=== PATIENT | male | born 1940 | race Caucasian/White ===

== ENCOUNTER 2022-06-10 15:21 | Inpatient (IN) ==
[2022-06-10 18:49] LABS: BASOPHILS # (AUTO) 0.1 X10^3/uL (0.0-0.1); BASOPHILS % (AUTO) 0.9 % (0.2-1.0); EOSINOPHILS # (AUTO) 0.5 x10^3/uL (0.0-0.2); EOSINOPHILS % (AUTO) 3.5 % (0.9-2.9); HEMATOCRIT 38.1 % (42.0-54.0); HEMOGLOBIN 12.9 g/dL (13.5-18.0); LYMPHOCYTES # (AUTO) 2.8 X10^3/uL (1.3-2.9); LYMPHOCYTES % (AUTO) 19.8 % (21.0-51.0); MEAN CORPUSCULAR HEMOGLOBIN 31.8 pg (27.0-34.0); MEAN CORPUSCULAR HGB CONC 33.9 g/dL (33.0-35.0); MEAN CORPUSCULAR VOLUME 93.6 fL (80.0-100.0); MEAN PLATELET VOLUME 8.6 fL (7.4-11.0); MONOCYTES % (AUTO) 7.2 % (0.0-13.0); NEUTROPHILS # (AUTO) 9.6 x10^3/uL (2.2-4.8); NEUTROPHILS % (AUTO) 68.6 % (42.0-75.0); PLATELET COUNT 339 X10^3/uL (150.0-450.0); RED BLOOD COUNT 4.07 X10^6/uL (4.7-6.0); RED CELL DISTRIBUTION WIDTH 14.7 % (11.6-16.5)
[2022-06-10 18:57] LABS: ALANINE AMINOTRANSFERASE 17 Units/L (12-78); ALBUMIN 3.6 g/dL (3.4-5.0); ALKALINE PHOSPHATASE 138 Units/L (46-116); ASPARTATE AMINO TRANSFERASE 16 Units/L (15-37); BLOOD UREA NITROGEN 31 mg/dL (7-18); CALCIUM 8.9 mg/dL (8.5-10.1); CARBON DIOXIDE 30.6 mmol/L (21-32); CHLORIDE 101 mmol/L (98-107); COR NA(FOR HYPERGLY) 140 mmol/L (136-145); CREATININE 1.41 mg/dL (0.70-1.30); GLUCOSE 202 mg/dL (65-99); POTASSIUM 4.1 mmol/L (3.5-5.1); SODIUM 138 mmol/L (136-145); TOTAL PROTEIN 7.6 g/dL (6.4-8.2); eGFR NON BLACK RACES 51 (>60)
[2022-06-10] MEDS ORDERED: NS 100 ML IV 100 ML ONE (19:00)
--- NOTE | 2022-06-10 19:01 | DR.UPDATE ---
H&P UPDATE Review Yes Any changes to H&P?: No
[2022-06-10] MEDS ORDERED: NITROSTAT SL PRN (19:03)
[2022-06-10] MEDS ORDERED: BENADRYL CAP/TAB 25 MG PO PRN (19:03)
--- NOTE | 2022-06-10 19:24 | EKG ---
Test Reason : pre op Blood Pressure : */* mmHG Vent. Rate : 85 BPM Atrial Rate : 85 BPM P-R Int : 174 ms QRS Dur : 190 ms QT Int : 458 ms P-R-T Axes : 20 -49 111 degrees QTc Int : 545 ms Atrial-sensed ventricular-paced rhythm Abnormal ECG No previous ECGs available Confirmed by Jose Elias Wills ([id number]) on 06/13/2022 10:25:30 AM Referred By: Confirmed By: Jose Elias Wills
[2022-06-10] MEDS: LR 1,000 ML IV 1,000 ML IV SCH (20:30)
[2022-06-10] MEDS: COLACE CAP 100 MG PO SCH (20:32)
[2022-06-10] MEDS: NEURONTIN CAP 300 MG PO SCH (20:32)
--- NOTE | 2022-06-10 20:50 | CT ---
HISTORYAbdominal pain, leg pain, critical ischemiaSTUDYCTA AORTA WITH bilateral lower extremity RUNOFFCOMPARISONNoneTECHNIQUEMultiple axial images of the abdomen and pelvis were obtained from the mesenteric vasculature to the plantar surface of the feet both prior to and after the administration of IV contrast. 3D reconstructions were performed utilizing radial maximum intensity projection imaging. Dose reduction techniques including Automated Exposure Control (AEC) and adjustment of mA and kV were utilized.FINDINGSThe lung bases are clear. The abdominal aorta tapers normally with advanced mixed density atherosclerotic plaque. No liver mass. Clips from prior cholecystectomy. Normal adrenal glands. Normal renal enhancement without obstruction. Mild renal cortical thinning.Normal spleen contours. Atrophy of the pancreas which is severe. Unremarkable appearance of the stomach.Reduced sensitivity due to significant metallic streak artifact from right hip arthroplasty. The bowel is not obstructed. No sign of appendicitis. Fatty left inguinal hernia.No pelvic free fluid. No lymphadenopathy.The origin of the celiac axis is patent with mild calcified atherosclerotic plaque. There is 50 percent luminal narrowing involving the proximal aspect of the superior mesenteric artery due to mixed density atherosclerotic plaque. There is 70 percent luminal narrowing of the proximal aspect of the inferior mesenteric artery secondary to calcified and noncalcified atherosclerotic plaque.Minimal plaque is present at the origin of the right renal artery. 80 percent narrowing at the origin of the left renal artery secondary to calcified atherosclerotic plaque.The common iliac bifurcation is patent.External iliac arteries are patent. Common femoral arteries are patent with mild calcified atherosclerotic plaque.Lower extremity run-off:Right: Reduced sensitivity due to metallic streak artifact from right hip arthroplasty. The right superficial femoral artery demonstrates an abrupt luminal narrowing of 50 percent just distal to the profunda bifurcation. The thigh portion of the right superficial femoral artery demonstrates extensive wall atherosclerotic calcifications without high-grade luminal narrowing.The right popliteal artery demonstrates focal stenosis of greater than 80 percent at the level of the tibial plateau. There is extensive atherosclerotic disease at the origin of the anterior tibial artery and trifurcation with no flow in the anterior tibial artery to the level of the foot.Extensive circumferential atherosclerotic plaque limits evaluation of the posterior tibial artery with long segment of trickle/broken flow suspected. The peroneal branch demonstrates densely calcified atherosclerotic plaque with only trickle flow to the ankle.Left: The left common femoral artery is patent. The left superficial femoral artery demonstrates advanced long segment mixed density atherosclerotic plaque.The left popliteal artery at the level of the tibial plateau demonstrates 50 percent luminal narrowing. There is advanced mixed density plaque in the distal popliteal artery involving the trifurcation.There is no demonstrable flow in the left anterior tibial artery. Densely calcified posterior tibial and peroneal branches limits CT evaluation of luminal flow. 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.IMPRESSIONSevere, multifocal atherosclerotic disease most pronounced at the origin of the left renal artery resulting in 80 percent luminal narrowing due to calcified atherosclerotic plaque.Bilateral lower extremity runoff is similar with extensive disease most pronounced in the distal popliteal arteries extending into the trifurcations with no demonstrable flow in either distal anterior tibial artery to the foot.Only trickle flow in the bilateral posterior tibial and peroneal branches to both feet.Additional findings as described.Electronically signed by: Sukumar Clinton (June 10, 2022 20:49:04)
[2022-06-10] MEDS: ULTRAM PO PRN (21:20)
[2022-06-11] MEDS: NORCO 5/325 MG TAB PO PRN ×2 (00:56→11:29)
[2022-06-11] MEDS: ULTRAM PO PRN (05:30)
[2022-06-11] MEDS: LIPITOR TAB 40 MG PO SCH (08:12)
[2022-06-11] MEDS: VITAMIN C PO SCH (08:12)
[2022-06-11] MEDS: NEURONTIN CAP 300 MG PO SCH ×2 (08:12→21:17)
[2022-06-11] MEDS: VITAMIN B-12 PO SCH (08:12)
[2022-06-11] MEDS: ZINC SULFATE PO SCH (08:12)
[2022-06-11] MEDS: ASPIRIN EC 81 MG PO SCH (08:12)
[2022-06-11] MEDS: PROTONIX TAB 40 MG PO SCH (08:13)
[2022-06-11] MEDS: TAB-A-VITE PO SCH (08:13)
--- NOTE | 2022-06-11 08:43 | RAD ---
HISTORYDiffuse atherosclerotic obstructive vascular diseaseSTUDYChest AP portableCOMPARISONNoneFINDINGSThere is a pacemaker present in the left axilla. Patient is status post median sternotomy and CABG. Heart is enlarged. Beatriz are normal. Aorta is calcified. No congestive heart failure or infiltrates identified. No pleural effusions are identified. Bony thorax is unremarkable.IMPRESSIONCardiomegaly without congestive heart failureNo acute infiltrateElectronically signed by: KOREY SPARKS (June 11, 2022 08:41:57)
[2022-06-11] MEDS: LR 1,000 ML IV 1,000 ML IV SCH ×3 (09:21→22:15)
[2022-06-11] MEDS: NovoLIN R (or HumuLIN R) SC PRN ×3 (11:29→21:17)
--- NOTE | 2022-06-11 16:02 | NOTE.SOAP ---
Soap Note Note for Day of Date of Exam: 06/11/22 Subjective Data Subjective Data: Doing well since admission and CTA done last night showed diffuse tight SFA disease and > 80 % stenosis of the right popiteal artery with 2 vessel runof via the right PT and peroneal arteries . Left SFA with diffuse disease and severe trifurcation disease of all of the trifurcation vessels on the left. Objective Data Temperature: 98.2 F Pulse Rate: 85 Respiratory Rate: 17 Blood Pressure: 165/73 O2 Sat by Pulse Oximetry: 94 Objective Data: Right heel wound unchanged . CTA findings as above . Assessment Assessment: Critical limb ischemia both legs, worse on right with right heel wound Plan Plan: Aortogram, arteriogram right leg and combination of atherectomy and ang ioplasty . Will schedule for Thursday06/13/2022 and then will do left side in the next few weeks.
[2022-06-11] MEDS: ZOSYN VIAL 3.375 GRAMS 3.375 G in NS 100 ML IV 100 ML IV SCH ×2 (16:45→21:17)
[2022-06-11] MEDS: COLACE CAP 100 MG PO SCH (21:16)
[2022-06-12] MEDS: NORCO 5/325 MG TAB PO PRN ×2 (04:27→21:12)
[2022-06-12] MEDS: ZOSYN VIAL 3.375 GRAMS 3.375 G in NS 100 ML IV 100 ML IV SCH ×3 (05:23→21:13)
[2022-06-12] MEDS: NovoLIN R (or HumuLIN R) SC PRN ×4 (05:24→21:30)
[2022-06-12] MEDS: NEURONTIN CAP 300 MG PO SCH ×2 (10:10→21:13)
[2022-06-12] MEDS: LIPITOR TAB 40 MG PO SCH (10:10)
[2022-06-12] MEDS: ASPIRIN EC 81 MG PO SCH (10:11)
[2022-06-12] MEDS: PROTONIX TAB 40 MG PO SCH (10:11)
[2022-06-12] MEDS: TAB-A-VITE PO SCH (10:11)
[2022-06-12] MEDS: ZINC SULFATE PO SCH (10:11)
[2022-06-12] MEDS: VITAMIN B-12 PO SCH (10:12)
[2022-06-12] MEDS: VITAMIN C PO SCH (10:12)
[2022-06-12] MEDS: LR 1,000 ML IV 1,000 ML IV SCH ×2 (13:03→23:45)
[2022-06-12] MEDS ORDERED: NORVASC TAB 10 MG ONE (14:30)
[2022-06-12] MEDS ORDERED: ZESTRIL TAB 20 MG ONE ×2 (14:30→19:49)
[2022-06-12] MEDS: NORVASC TAB 10 MG PO SCH (14:57)
[2022-06-12] MEDS: ZESTRIL TAB 20 MG PO SCH ×2 (14:58→21:13)
[2022-06-12] MEDS: COLACE CAP 100 MG PO SCH (21:12)
--- NOTE | 2022-06-12 22:45 | NOTE.SOAP ---
Soap Note Note for Day of Date of Exam: 06/12/22 Subjective Data Subjective Data: Patient stable . Ischemic right foot with 80% stenosis of right tibial - peroneal trunk and significant trifurcation level disease with non-healing right heel wound. Objective Data Temperature: 97.9 F Pulse Rate: 80 Respiratory Rate: 31 Blood Pressure: 131/60 O2 Sat by Pulse Oximetry: 94 Objective Data: Cool right foot. See PE before Assessment Assessment: critical ischemia right leg Plan Plan: Aortogram, arteriogram right leg, possible atherectomy, possible angioplasty of tib-peroneal trunk and distal vessels . Risks and benefits discussed and he agrees to proceed.
[2022-06-13] MEDS: LR 1,000 ML IV 1,000 ML IV SCH ×3 (00:04→21:42)
[2022-06-13] MEDS: ZOSYN VIAL 3.375 GRAMS 3.375 G in NS 100 ML IV 100 ML IV SCH ×3 (05:35→21:40)
[2022-06-13 05:47] LABS: BLOOD UREA NITROGEN 16 mg/dL (7-18); CALCIUM 8.6 mg/dL (8.5-10.1); CARBON DIOXIDE 29.7 mmol/L (21-32); CHLORIDE 98 mmol/L (98-107); COR NA(FOR HYPERGLY) 137 mmol/L (136-145); CREATININE 1.25 mg/dL (0.70-1.30); GLUCOSE 209 mg/dL (65-99); POTASSIUM 4.1 mmol/L (3.5-5.1); SODIUM 134 mmol/L (136-145); eGFR NON BLACK RACES 59 (>60)
[2022-06-13] MEDS: ZINC SULFATE PO SCH (08:45)
[2022-06-13] MEDS: VITAMIN C PO SCH (08:45)
[2022-06-13] MEDS: VITAMIN B-12 PO SCH (08:45)
[2022-06-13] MEDS: TAB-A-VITE PO SCH (08:45)
[2022-06-13] MEDS ORDERED: DIPRIVAN VIAL 20 ML ONE ×2 (09:00→11:05)
[2022-06-13] MEDS ORDERED: FENTANYL VIAL INJ 100 mcg ONE (09:02)
[2022-06-13] MEDS ORDERED: VERSED ONE (09:02)
[2022-06-13] MEDS ORDERED: NS 1,000 ML IV 1,000 ML ONE (09:18)
[2022-06-13] MEDS ORDERED: ANCEF VIAL 1 GRAM ONE (09:18)
[2022-06-13] MEDS ORDERED: NS 100 ML IV 100 ML ONE (09:18)
[2022-06-13] MEDS ORDERED: MARCAINE 0.25% INJ ONE (09:32)
[2022-06-13] MEDS ORDERED: HEPARIN SODIUM IN D5W 75,000 UNITS/1,500 ML BAG ONE (09:33)
[2022-06-13] MEDS ORDERED: KETAMINE HCL ONE (09:51)
[2022-06-13] MEDS ORDERED: XYLOCAINE 2 % (PLAIN) ONE (09:51)
[2022-06-13] MEDS ORDERED: PRECEDEX INJ VIAL IVP ONE (09:51)
[2022-06-13] MEDS ORDERED: OFIRMEV IV 1000 MG VIAL 1,000 MG/100 ML VIAL IV ONE (09:53)
[2022-06-13] MEDS ORDERED: NEO-SYNEPHRINE INJ ONE (10:12)
[2022-06-13] MEDS ORDERED: HEPARIN SODIUM INJ 5000 UNITS ONE (10:15)
[2022-06-13] MEDS ORDERED: ZOFRAN INJ 4 MG VIAL ONE (10:20)
[2022-06-13] MEDS ORDERED: PEPCID 20 MG VIAL ONE (10:22)
[2022-06-13] MEDS ORDERED: NS 500 ML IV 500 ML IV ONE (10:38)
[2022-06-13] MEDS ORDERED: ZESTRIL TAB 20 MG ONE ×2 (11:02→21:09)
[2022-06-13] MEDS ORDERED: NITROGLYCERIN IV PREMIX 50 MG 50 MG/250 ML BAG ONE (11:58)
[2022-06-13] MEDS ORDERED: PROTAMINE SULFATE 50 MG VIAL ONE (12:11)
--- NOTE | 2022-06-13 12:32 | OR.IMMED ---
IMMEDIATE POST-OP NOTE Immediate Post-Op Note Pre-Op Diagnosis: critical ischemia right foot with non healing heel wound Post-Op Diagnosis: same Procedure: aortogram, arteriogram right leg , atherectomy and drug coated balloon angioplasty right distal SFA, right popliteal , and right tibial- peroneal trunk arteries and angioplasty of the right posterior tibial artery Description of Procedure: see operative note Surgeon/Senior Sales Consultant: francisca Findings: severe disease right distal SFA and tibial peroneal trunk, near total occlusion right popliteal artery, severe disease proximal right posterior tibial artery. Posterior tibial artery is the only runoff to the foot. Estimated Blood Loss: 200 cc Complications: none Progress Notes: Return to ICU, If stable will discharge back to [facility] today.
--- NOTE | 2022-06-13 13:29 | W.DIS.FURT ---
Summary of Discharge Discharge Summary of Date Date of Exam: 06/13/22 Admission Date Date of Admission: 06/10/22 Admission Diagnosis Hospital Course: This 82 year old male presented to my office on June 10 complaining of rest pain of the right foot and a non-healing wound to his right heel. He is diabetic. He does use his legs to help with transfer and to dress. He has been undergoing physical therapy. 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 On June 13 he underwent arteriogram of the right lower extremity with atherectomy and Drug coated balloon angioplasty of the right distal superficial femoral artery , the right nearly totally occluded popliteal artery, and the severely disesed right tibial peroneal trunk. He also had angioplasty of ther severely diseased right proximal posterior tibial artery. The posterior tibial artery is the only runoff to the right foot. He tolerated this well . [facility] will be [facility] and follow up with me in one week. He will be on his usual medications plus Xarelto 2.5 mg po BID. Vital Signs: Vital Signs (72 hours) 06/11/22 16:00 06/12/22 22:44 06/10/22 18:26 Temperature 98.2 F 97.9 F Pulse Rate 85 80 85 Respiratory Rate 17 31 H 26 H Blood Pressure 165/73 131/60 O2 Sat by Pulse Oximetry 94 L 94 L 98 Oxygen Delivery Method FIO2% 06/10/22 18:30 06/10/22 18:45 06/10/22 19:00 Temperature Pulse Rate 85 83 Respiratory Rate 33 H 33 H Blood Pressure 199/88 O2 Sat by Pulse Oximetry 98 99 Oxygen Delivery Method FIO2% 06/10/22 19:00 06/10/22 19:04 06/10/22 19:04 Temperature Pulse Rate 84 84 Respiratory Rate 44 H 21 Blood Pressure 185/84 O2 Sat by Pulse Oximetry 100 100 Oxygen Delivery Method FIO2% 06/10/22 19:15 06/10/22 19:52 06/10/22 19:56 Temperature Pulse Rate 84 91 H 91 H Respiratory Rate 22 38 H Blood Pressure O2 Sat by Pulse Oximetry 99 100 99 Oxygen Delivery Method FIO2% 06/10/22 19:56 06/10/22 20:00 06/10/22 20:00 Temperature 98.1 F Pulse Rate 87 Respiratory Rate 34 H Blood Pressure 148/82 174/82 O2 Sat by Pulse Oximetry 99 Oxygen Delivery Method FIO2% 06/10/22 20:01 06/10/22 20:01 06/10/22 20:15 Temperature Pulse Rate 87 84 Respiratory Rate 33 H 34 H Blood Pressure 169/66 O2 Sat by Pulse Oximetry 99 97 Oxygen Delivery Method FIO2% 06/10/22 20:30 06/10/22 19:00 06/10/22 20:45 Temperature Pulse Rate 83 83 Respiratory Rate 30 H 35 H Blood Pressure O2 Sat by Pulse Oximetry 98 99 Oxygen Delivery Method Room Air FIO2% 06/10/22 21:00 06/10/22 21:13 06/10/22 21:20 Temperature Pulse Rate 84 Respiratory Rate 30 H 10 L Blood Pressure O2 Sat by Pulse Oximetry 100 Oxygen Delivery Method Room Air FIO2% 21 06/10/22 22:20 06/10/22 21:15 06/10/22 21:30 Temperature Pulse Rate 83 81 Respiratory Rate 10 L 19 19 Blood Pressure O2 Sat by Pulse Oximetry 100 100 Oxygen Delivery Method FIO2% 06/10/22 21:45 06/10/22 22:00 06/10/22 22:15 Temperature Pulse Rate 83 82 82 Respiratory Rate 17 17 18 Blood Pressure O2 Sat by Pulse Oximetry 100 99 99 Oxygen Delivery Method FIO2% 06/10/22 22:30 06/10/22 22:45 06/10/22 23:00 Temperature Pulse Rate 81 82 82 Respiratory Rate 18 12 11 L Blood Pressure O2 Sat by Pulse Oximetry 98 97 96 Oxygen Delivery Method FIO2% 06/10/22 23:15 06/10/22 23:30 06/10/22 23:45 Temperature Pulse Rate 84 81 81 Respiratory Rate 12 14 17 Blood Pressure O2 Sat by Pulse Oximetry 100 98 97 Oxygen Delivery Method FIO2% 06/11/22 00:00 06/11/22 00:00 06/11/22 00:56 Temperature 97.7 F Pulse Rate 80 Respiratory Rate 17 20 Blood Pressure 158/71 O2 Sat by Pulse Oximetry 95 Oxygen Delivery Method FIO2% 06/11/22 00:15 06/11/22 00:30 06/11/22 00:45 Temperature Pulse Rate 80 79 80 Respiratory Rate 16 15 21 Blood Pressure O2 Sat by Pulse Oximetry 97 97 95 Oxygen Delivery Method FIO2% 06/11/22 01:00 06/11/22 04:00 06/11/22 01:15 Temperature 98.0 F Pulse Rate 81 80 80 Respiratory Rate 22 20 16 Blood Pressure 150/65 O2 Sat by Pulse Oximetry 96 96 97 Oxygen Delivery Method Room Air FIO2% 06/11/22 01:30 06/11/22 01:45 06/11/22 02:00 Temperature Pulse Rate 79 79 78 Respiratory Rate 17 15 12 Blood Pressure O2 Sat by Pulse Oximetry 96 96 96 Oxygen Delivery Method FIO2% 06/11/22 02:15 06/11/22 02:30 06/11/22 02:45 Temperature Pulse Rate 79 79 78 Respiratory Rate 12 11 L 10 L Blood Pressure O2 Sat by Pulse Oximetry 96 96 95 Oxygen Delivery Method FIO2% 06/11/22 03:00 06/11/22 03:15 06/11/22 03:30 Temperature Pulse Rate 77 78 78 Respiratory Rate 19 16 21 Blood Pressure O2 Sat by Pulse Oximetry 96 96 97 Oxygen Delivery Method FIO2% 06/11/22 03:45 06/11/22 04:00 06/11/22 04:00 Temperature Pulse Rate 79 78 Respiratory Rate 12 13 Blood Pressure 150/65 O2 Sat by Pulse Oximetry 97 94 L Oxygen Delivery Method FIO2% 06/11/22 04:15 06/11/22 04:30 06/11/22 04:45 Temperature Pulse Rate 79 79 84 Respiratory Rate 12 38 H 32 H Blood Pressure O2 Sat by Pulse Oximetry 95 97 98 Oxygen Delivery Method FIO2% 06/11/22 05:00 06/11/22 05:15 06/11/22 05:30 Temperature Pulse Rate 82 80 79 Respiratory Rate 22 22 22 Blood Pressure O2 Sat by Pulse Oximetry 95 95 95 Oxygen Delivery Method FIO2% 06/11/22 05:45 06/11/22 06:00 06/11/22 01:56 Temperature Pulse Rate 79 79 Respiratory Rate 10 L 16 10 L Blood Pressure O2 Sat by Pulse Oximetry 95 96 Oxygen Delivery Method FIO2% 06/11/22 05:30 06/11/22 06:30 06/11/22 06:45 Temperature Pulse Rate 79 79 Respiratory Rate 20 14 14 Blood Pressure O2 Sat by Pulse Oximetry 96 96 Oxygen Delivery Method FIO2% 06/11/22 07:00 06/11/22 07:00 06/11/22 07:45 Temperature Pulse Rate 79 81 Respiratory Rate 12 15 Blood Pressure O2 Sat by Pulse Oximetry 95 96 Oxygen Delivery Method Room Air FIO2% 06/11/22 08:00 06/11/22 08:00 06/11/22 08:15 Temperature 97.9 F Pulse Rate 80 81 Respiratory Rate 14 40 H Blood Pressure 161/74 O2 Sat by Pulse Oximetry 93 L 95 Oxygen Delivery Method FIO2% 06/11/22 08:30 06/11/22 08:45 06/11/22 06:30 Temperature Pulse Rate 81 84 Respiratory Rate 21 33 H 20 Blood Pressure O2 Sat by Pulse Oximetry 95 97 Oxygen Delivery Method FIO2% 06/11/22 09:00 06/11/22 09:15 06/11/22 09:30 Temperature Pulse Rate 86 85 83 Respiratory Rate 22 20 17 Blood Pressure O2 Sat by Pulse Oximetry 97 97 95 Oxygen Delivery Method FIO2% 06/11/22 09:45 06/11/22 10:00 06/11/22 11:29 Temperature Pulse Rate 82 82 Respiratory Rate 17 13 15 Blood Pressure O2 Sat by Pulse Oximetry 96 96 Oxygen Delivery Method FIO2% 06/11/22 10:15 06/11/22 10:30 06/11/22 10:45 Temperature Pulse Rate 81 80 81 Respiratory Rate 10 L 16 10 L Blood Pressure O2 Sat by Pulse Oximetry 96 95 95 Oxygen Delivery Method FIO2% 06/11/22 11:00 06/11/22 11:16 06/11/22 11:30 Temperature Pulse Rate 84 82 83 Respiratory Rate 19 16 19 Blood Pressure O2 Sat by Pulse Oximetry 96 96 96 Oxygen Delivery Method FIO2% 06/11/22 11:45 06/11/22 12:00 06/11/22 12:00 Temperature 98.2 F Pulse Rate 82 79 Respiratory Rate 17 14 Blood Pressure 165/73 O2 Sat by Pulse Oximetry 95 94 L Oxygen Delivery Method FIO2% 06/11/22 12:15 06/11/22 13:00 06/11/22 13:15 Temperature Pulse Rate 80 90 84 Respiratory Rate 16 22 18 Blood Pressure O2 Sat by Pulse Oximetry 96 99 97 Oxygen Delivery Method FIO2% 06/11/22 13:30 06/11/22 13:45 06/11/22 14:00 Temperature Pulse Rate 85 84 85 Respiratory Rate 24 38 H 34 H Blood Pressure O2 Sat by Pulse Oximetry 98 98 97 Oxygen Delivery Method FIO2% 06/11/22 12:29 06/11/22 14:45 06/11/22 15:00 Temperature Pulse Rate 94 H 85 Respiratory Rate 22 26 H 17 Blood Pressure O2 Sat by Pulse Oximetry 97 94 L Oxygen Delivery Method FIO2% 06/11/22 15:15 06/11/22 15:30 06/11/22 15:45 Temperature Pulse Rate 82 81 82 Respiratory Rate 16 20 21 Blood Pressure O2 Sat by Pulse Oximetry 94 L 93 L 93 L Oxygen Delivery Method FIO2% 06/11/22 16:00 06/11/22 16:00 06/11/22 16:15 Temperature 98.1 F Pulse Rate 82 80 Respiratory Rate 18 21 Blood Pressure 158/71 O2 Sat by Pulse Oximetry 93 L 95 Oxygen Delivery Method FIO2% 06/11/22 16:30 06/11/22 17:00 06/11/22 17:15 Temperature Pulse Rate 79 84 83 Respiratory Rate 17 23 Blood Pressure O2 Sat by Pulse Oximetry 95 97 97 Oxygen Delivery Method FIO2% 06/11/22 17:30 06/11/22 17:45 06/11/22 18:00 Temperature Pulse Rate 82 80 84 Respiratory Rate 30 H 24 Blood Pressure O2 Sat by Pulse Oximetry 97 94 L 95 Oxygen Delivery Method FIO2% 06/11/22 19:00 06/11/22 18:15 06/11/22 18:30 Temperature Pulse Rate 85 82 Respiratory Rate 28 H 39 H Blood Pressure O2 Sat by Pulse Oximetry 96 97 Oxygen Delivery Method Room Air FIO2% 06/11/22 18:45 06/11/22 19:00 06/11/22 19:15 Temperature Pulse Rate 83 81 81 Respiratory Rate 20 16 14 Blood Pressure O2 Sat by Pulse Oximetry 96 95 95 Oxygen Delivery Method FIO2% 06/11/22 19:30 06/11/22 19:35 06/11/22 19:35 Temperature Pulse Rate 82 83 Respiratory Rate 31 H 21 Blood Pressure 167/74 O2 Sat by Pulse Oximetry 96 94 L Oxygen Delivery Method FIO2% 06/11/22 19:45 06/11/22 20:00 06/11/22 20:01 Temperature 98.3 F Pulse Rate 82 83 83 Respiratory Rate 23 35 H 33 H Blood Pressure O2 Sat by Pulse Oximetry 95 96 94 L Oxygen Delivery Method FIO2% 06/11/22 20:01 06/11/22 20:15 06/11/22 20:25 Temperature Pulse Rate 80 Respiratory Rate 18 Blood Pressure 194/80 204/86 O2 Sat by Pulse Oximetry 95 Oxygen Delivery Method FIO2% 06/11/22 20:25 06/11/22 20:27 06/11/22 20:27 Temperature Pulse Rate 80 81 Respiratory Rate 25 H 24 Blood Pressure 190/78 O2 Sat by Pulse Oximetry 95 98 Oxygen Delivery Method FIO2% 06/11/22 20:30 06/11/22 20:45 06/11/22 21:00 Temperature Pulse Rate 80 79 79 Respiratory Rate 17 19 25 H Blood Pressure O2 Sat by Pulse Oximetry 97 96 96 Oxygen Delivery Method FIO2% 06/11/22 21:15 06/11/22 21:30 06/11/22 21:45 Temperature Pulse Rate 79 79 78 Respiratory Rate 18 17 11 L Blood Pressure O2 Sat by Pulse Oximetry 95 95 96 Oxygen Delivery Method FIO2% 06/11/22 22:00 06/11/22 22:00 06/11/22 22:08 Temperature Pulse Rate 78 Respiratory Rate 16 Blood Pressure 191/86 169/77 O2 Sat by Pulse Oximetry 92 L Oxygen Delivery Method FIO2% 06/11/22 22:08 06/11/22 22:15 06/11/22 22:30 Temperature Pulse Rate 79 80 80 Respiratory Rate 30 H 14 16 Blood Pressure O2 Sat by Pulse Oximetry 93 L 95 97 Oxygen Delivery Method FIO2% 06/11/22 22:45 06/11/22 22:59 06/11/22 23:00 Temperature Pulse Rate 79 77 Respiratory Rate 17 12 Blood Pressure 154/72 O2 Sat by Pulse Oximetry 97 94 L Oxygen Delivery Method FIO2% 06/11/22 23:00 06/11/22 23:15 06/11/22 23:30 Temperature Pulse Rate 77 79 77 Respiratory Rate 17 15 16 Blood Pressure O2 Sat by Pulse Oximetry 96 95 94 L Oxygen Delivery Method FIO2% 06/11/22 23:45 06/12/22 00:00 06/12/22 00:00 Temperature 98.3 F Pulse Rate 76 75 Respiratory Rate 18 17 Blood Pressure 161/72 O2 Sat by Pulse Oximetry 95 94 L Oxygen Delivery Method FIO2% 06/12/22 00:15 06/12/22 00:30 06/12/22 00:45 Temperature Pulse Rate 78 76 75 Respiratory Rate 17 13 8 L Blood Pressure O2 Sat by Pulse Oximetry 95 96 95 Oxygen Delivery Method FIO2% 06/12/22 01:00 06/12/22 01:02 06/12/22 01:02 Temperature Pulse Rate 78 78 Respiratory Rate 13 36 H Blood Pressure 164/61 O2 Sat by Pulse Oximetry 96 96 Oxygen Delivery Method FIO2% 06/12/22 01:15 06/12/22 01:30 06/12/22 01:45 Temperature Pulse Rate 79 75 74 Respiratory Rate 15 17 17 Blood Pressure O2 Sat by Pulse Oximetry 97 97 97 Oxygen Delivery Method FIO2% 06/12/22 02:00 06/12/22 02:15 06/12/22 04:27 Temperature Pulse Rate 73 74 Respiratory Rate 17 18 15 Blood Pressure O2 Sat by Pulse Oximetry 96 95 Oxygen Delivery Method FIO2% 06/12/22 02:30 06/12/22 02:45 06/12/22 03:00 Temperature Pulse Rate 75 75 73 Respiratory Rate 16 15 17 Blood Pressure O2 Sat by Pulse Oximetry 97 96 97 Oxygen Delivery Method FIO2% 06/12/22 03:15 06/12/22 03:30 06/12/22 03:45 Temperature Pulse Rate 74 75 74 Respiratory Rate 16 14 15 Blood Pressure O2 Sat by Pulse Oximetry 95 95 97 Oxygen Delivery Method FIO2% 06/12/22 04:00 06/12/22 04:02 06/12/22 04:02 Temperature 98.0 F Pulse Rate 74 76 Respiratory Rate 21 19 Blood Pressure 209/93 O2 Sat by Pulse Oximetry 93 L 94 L Oxygen Delivery Method FIO2% 06/12/22 04:15 06/12/22 04:16 06/12/22 04:16 Temperature Pulse Rate 87 86 Respiratory Rate 18 11 L Blood Pressure 210/95 O2 Sat by Pulse Oximetry Oxygen Delivery Method FIO2% 06/12/22 04:30 06/12/22 04:45 06/12/22 05:00 Temperature Pulse Rate 81 76 75 Respiratory Rate 20 16 16 Blood Pressure O2 Sat by Pulse Oximetry 95 95 92 L Oxygen Delivery Method FIO2% 06/12/22 05:01 06/12/22 05:01 06/12/22 05:03 Temperature Pulse Rate 75 75 Respiratory Rate 17 14 Blood Pressure 186/74 O2 Sat by Pulse Oximetry 93 L 94 L Oxygen Delivery Method FIO2% 06/12/22 05:03 06/12/22 05:13 06/12/22 05:13 Temperature Pulse Rate 76 Respiratory Rate 38 H Blood Pressure 194/81 117/57 O2 Sat by Pulse Oximetry 90 L Oxygen Delivery Method FIO2% 06/12/22 05:02 06/12/22 05:07 06/12/22 05:15 Temperature Pulse Rate 76 Respiratory Rate 12 12 12 Blood Pressure O2 Sat by Pulse Oximetry 93 L Oxygen Delivery Method FIO2% 06/12/22 05:30 06/12/22 05:45 06/12/22 06:00 Temperature Pulse Rate 77 75 75 Respiratory Rate 12 15 12 Blood Pressure O2 Sat by Pulse Oximetry 94 L 93 L 94 L Oxygen Delivery Method FIO2% 06/12/22 05:27 06/12/22 07:00 06/12/22 08:00 Temperature 97.7 F 97.7 F Pulse Rate 78 78 Respiratory Rate 12 15 15 Blood Pressure 164/76 164/76 O2 Sat by Pulse Oximetry 92 L 92 L Oxygen Delivery Method FIO2% 06/12/22 07:00 06/12/22 09:28 06/12/22 12:00 Temperature 97.7 F 97.8 F Pulse Rate 78 84 Respiratory Rate 15 16 Blood Pressure 164/76 176/84 O2 Sat by Pulse Oximetry 92 L 97 Oxygen Delivery Method Room Air FIO2% 06/12/22 16:00 06/12/22 19:00 06/12/22 20:14 Temperature 98.0 F Pulse Rate 86 Respiratory Rate 20 Blood Pressure 174/84 131/66 O2 Sat by Pulse Oximetry 94 L Oxygen Delivery Method Room Air FIO2% 06/12/22 20:15 06/12/22 21:12 06/12/22 22:12 Temperature 97.9 F Pulse Rate 80 Respiratory Rate 31 H 28 H 17 Blood Pressure O2 Sat by Pulse Oximetry 94 L Oxygen Delivery Method FIO2% 06/13/22 00:00 06/13/22 00:06 06/13/22 04:00 Temperature 97.4 F L 98.2 F Pulse Rate 74 Respiratory Rate 13 Blood Pressure 137/65 144/69 O2 Sat by Pulse Oximetry 96 Oxygen Delivery Method FIO2% 06/13/22 04:00 06/13/22 07:32 06/13/22 07:00 Temperature 98.1 F Pulse Rate 69 Respiratory Rate 15 Blood Pressure O2 Sat by Pulse Oximetry 94 L Oxygen Delivery Method Room Air FIO2% 06/13/22 09:24 Temperature Pulse Rate 77 Respiratory Rate 18 Blood Pressure 140/66 O2 Sat by Pulse Oximetry 96 Oxygen Delivery Method Room Air FIO2% Labs: Laboratory Last Values WBC 14.0 X10^3/uL (3.6-10.0) H 06/10/22 18:34 RBC 4.07 X10^6/uL (4.7-6.0) L 06/10/22 18:34 Hgb 12.9 g/dL (13.5-18.0) L 06/10/22 18:34 Hct 38.1 % (42.0-54.0) L 06/10/22 18:34 MCV 93.6 fL (80.0-100.0) 06/10/22 18:34 MCH 31.8 pg (27.0-34.0) 06/10/22 18:34 MCHC 33.9 g/dL (33.0-35.0) 06/10/22 18:34 RDW 14.7 % (11.6-16.5) 06/10/22 18:34 Plt Count 339 X10^3/uL (150.0-450.0) 06/10/22 18:34 MPV 8.6 fL (7.4-11.0) 06/10/22 18:34 Neut % (Auto) 68.6 % (42.0-75.0) 06/10/22 18:34 Lymph % (Auto) 19.8 % (21.0-51.0) L 06/10/22 18:34 [place] % (Auto) 7.2 % (0.0-13.0) 06/10/22 18:34 Eos % (Auto) 3.5 % (0.9-2.9) H 06/10/22 18:34 Baso % (Auto) 0.9 % (0.2-1.0) 06/10/22 18:34 Neut # (Auto) 9.6 x10^3/uL (2.2-4.8) H 06/10/22 18:34 Lymph # (Auto) 2.8 X10^3/uL (1.3-2.9) 06/10/22 18:34 [place] # (Auto) 1.0 x10^3/uL (0.3-0.8) H 06/10/22 18:34 Eos # (Auto) 0.5 x10^3/uL (0.0-0.2) H 06/10/22 18:34 Baso # (Auto) 0.1 X10^3/uL (0.0-0.1) 06/10/22 18:34 Absolute Nucleated RBC 0.1 /100WBC 06/10/22 18:34 Sodium 134 mmol/L (136-145) L 06/13/22 04:05 Corrected Sodium 137 mmol/L (136-145) 06/13/22 04:05 Potassium 4.1 mmol/L (3.5-5.1) 06/13/22 04:05 Chloride 98 mmol/L (98-107) 06/13/22 04:05 Carbon Dioxide 29.7 mmol/L (21-32) 06/13/22 04:05 BUN 16 mg/dL (7-18) 06/13/22 04:05 Creatinine 1.25 mg/dL (0.70-1.30) 06/13/22 04:05 Est GFR (MDRD) Af Amer > 60 (>60) 06/13/22 04:05 Est GFR (MDRD) Non-Af 59 (>60) 06/13/22 04:05 Glucose 209 mg/dL (65-99) H 06/13/22 04:05 POC Glucose (mg/dL) 249 mg/dL (65-99) H 06/12/22 20:45 Calcium 8.6 mg/dL (8.5-10.1) 06/13/22 04:05 Corrected Calcium TNP 06/10/22 18:34 Total Bilirubin 0.20 mg/dL (0.2-1.0) 06/10/22 18:34 AST 16 Units/L (15-37) 06/10/22 18:34 ALT 17 Units/L (12-78) 06/10/22 18:34 Alkaline Phosphatase 138 Units/L (46-116) H 06/10/22 18:34 Total Protein 7.6 g/dL (6.4-8.2) 06/10/22 18:34 Albumin 3.6 g/dL (3.4-5.0) 06/10/22 18:34 Globulin 4.0 g/dL (2.5-4.5) 06/10/22 18:34 Albumin/Globulin Ratio 0.9 Ratio (1.1-2.1) L 06/10/22 18:34 Reason For Visit: CRITICAL ISCHEMIA Discharge Date Discharge Date: 06/13/22 Discharge Diagnosis All Active Problems (Updated 06/13/22 @ 13:13 by Jared Montana) Critical limb ischemia of right lower extremity (Acute) Plan of Treatment: Continue with present treatment and follow up plan. Pt is to keep follow up appointment as instructed and take medications as ordered. Discharge Medications Discharge Medications: No Known Allergies Allergy (Verified 06/10/22 19:11) CONTINUE taking the following medications amlodipine 10 mg tablet 1 tab PO QDAY 06/10/22 [History] atorvastatin 20 mg tablet 1 tab PO QDAY 06/10/22 [History] cyanocobalamin (vitamin B-12) 1,000 mcg/mL injection solution ml IM 06/10/22 [History] gabapentin 100 mg capsule 300 cap PO HS 06/10/22 [History] gabapentin 300 mg capsule 1 cap PO QDAY 06/10/22 [History] glyburide 5 mg tablet 2 tab PO BID 06/10/22 [History] hydrocodone 5 mg-acetaminophen 325 mg tablet 1 tab PO BID PRN 06/10/22 [History] insulin degludec 200 unit/mL (3 mL) subcutaneous pen (Tresiba FlexTouch U-200 insulin) ea subcut 06/10/22 [History] lisinopril 20 mg tablet 1 tab PO BID 06/10/22 [History] pantoprazole 40 mg tablet,delayed release 1 tab PO QDAY 06/10/22 [History] tramadol 50 mg tablet 1 tab PO TID PRN 06/10/22 [History] Discharge Disposition Assessment: see hospital course Discharge Disposition: To [facility] Discharge Condition: good Discharge Plan Discharge Plan Hospital Course: This 82 year old male presented to my office on June 10 complaining of rest pain of the right foot and a non-healing wound to his right heel. He is diabetic. He does use his legs to help with transfer and to dress. He has been undergoing physical therapy. 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 On June 13 he underwent arteriogram of the right lower extremity with atherectomy and Drug coated balloon angioplasty of the right distal superficial femoral artery , the right nearly totally occluded popliteal artery, and the severely disesed right tibial peroneal trunk. He also had angioplasty of ther severely diseased right proximal posterior tibial artery. The posterior tibial artery is the only runoff to the right foot. He tolerated this well . He [facility] be [facility] and follow up with me in one week. He will be on his usual medications plus Xarelto 2.5 mg po BID. Patient Disposition: 01 HOME, SELF-CARE Condition: Stable Health Concerns: Post Hospitalization: new medications and changes needed to prevent readmission or further decline. Pt educated and given instructions on all concerns. Plan of Treatment: Continue with present treatment and follow up plan. Pt is to keep follow up appointment as instructed and take medications as ordered. Assessment: see hospital course Prescriptions: New Xarelto 2.5 mg tablet 2.5 mg PO BID Qty: 180 4RF Continued atorvastatin 20 mg tablet 1 tab PO QDAY glyburide 5 mg tablet 2 tab PO BID lisinopril 20 mg tablet 1 tab PO BID amlodipine 10 mg tablet 1 tab PO QDAY pantoprazole 40 mg tablet,delayed release (DR/EC) 1 tab PO QDAY cyanocobalamin (vitamin B-12) 1,000 mcg/mL solution IM gabapentin 300 mg capsule 1 cap PO QDAY gabapentin 100 mg capsule 300 cap PO HS insulin degludec [Tresiba FlexTouch U-200] 200 unit/mL (3 mL) insulin pen SUBCUT Label Comments: [NO ORIGINAL SIG] hydrocodone-acetaminophen 5-325 mg tablet 1 tab PO BID PRN tramadol 50 mg tablet 1 tab PO TID PRN Follow ups/Referrals Follow ups/Referrals: Jared Montana [Primary Care Provider] - 1 WEEK Instructions Stand Alone Forms: Excuse From Work or School
[2022-06-13] MEDS: NORVASC TAB 10 MG PO SCH (13:38)
[2022-06-13] MEDS: ZESTRIL TAB 20 MG PO SCH ×2 (13:38→21:41)
[2022-06-13] MEDS: NEURONTIN CAP 300 MG PO SCH ×2 (13:38→21:42)
[2022-06-13] MEDS: NORCO 5/325 MG TAB PO PRN (13:55)
[2022-06-13] MEDS: PROTONIX TAB 40 MG PO SCH (13:56)
[2022-06-13] MEDS: ASPIRIN EC 81 MG PO SCH (13:56)
[2022-06-13] MEDS: LIPITOR TAB 40 MG PO SCH (13:56)
[2022-06-13] MEDS: NovoLIN R (or HumuLIN R) SC PRN ×2 (16:20→21:44)
[2022-06-13] MEDS: COLACE CAP 100 MG PO SCH (21:40)
[2022-06-13] MEDS: XARELTO PO SCH (21:40)
--- NOTE | 2022-06-13 21:40 | NOTE.SOAP ---
Soap Note Note for Day of Date of Exam: 06/13/22 Subjective Data Subjective Data: See discharge summary.Patient admitted with significant ischemia of the right leg with non-healing right heel wound. Had atherectomy and drug coated balloon angioplasty of right distal SFA, near complete occlusion of the right popliteal artery , severe disease of the right tibial -peroneal trunk and angioplasty of the severe of the right posterior tibial artery with the posterior tibial artery being the only right foot runoff. Was to be transferred back to [facility] where he cane from , but he needs repeat authorization and that cannot happen before Thursday. Hence, discharge will be cancelled and we will keep him until Thursday. Objective Data Temperature: 98.4 F Pulse Rate: 77 Respiratory Rate: 20 Blood Pressure: 126/60 O2 Sat by Pulse Oximetry: 99 Objective Data: warm right foot. Assessment Assessment: critical ischemia right foot , s/p intervention as above Plan Plan: continue present care.
[2022-06-14] MEDS: NORCO 5/325 MG TAB PO PRN ×3 (00:58→21:05)
[2022-06-14] MEDS: ULTRAM PO PRN (05:37)
[2022-06-14] MEDS: ZOSYN VIAL 3.375 GRAMS 3.375 G in NS 100 ML IV 100 ML IV SCH ×3 (05:41→21:06)
[2022-06-14] MEDS: LR 1,000 ML IV 1,000 ML IV SCH ×4 (08:01→21:06)
[2022-06-14] MEDS ORDERED: ZESTRIL TAB 20 MG ONE ×2 (08:30→20:28)
[2022-06-14] MEDS: ZINC SULFATE PO SCH (08:34)
[2022-06-14] MEDS: NORVASC TAB 10 MG PO SCH (08:34)
[2022-06-14] MEDS: NEURONTIN CAP 300 MG PO SCH ×2 (08:34→21:04)
[2022-06-14] MEDS: LIPITOR TAB 40 MG PO SCH (08:34)
[2022-06-14] MEDS: ZESTRIL TAB 20 MG PO SCH ×2 (08:35→21:05)
[2022-06-14] MEDS: XARELTO PO SCH ×2 (08:35→21:04)
[2022-06-14] MEDS: PROTONIX TAB 40 MG PO SCH (08:35)
[2022-06-14] MEDS: ASPIRIN EC 81 MG PO SCH (08:35)
[2022-06-14] MEDS: TAB-A-VITE PO SCH (08:35)
[2022-06-14] MEDS: VITAMIN C PO SCH (08:35)
[2022-06-14] MEDS: VITAMIN B-12 PO SCH (08:36)
[2022-06-14] MEDS: NovoLIN R (or HumuLIN R) SC PRN ×3 (12:19→21:07)
[2022-06-14] MEDS: COLACE CAP 100 MG PO SCH (21:04)
--- NOTE | 2022-06-14 23:27 | NOTE.SOAP ---
Soap Note Note for Day of Date of Exam: 06/14/22 Subjective Data Subjective Data: POD # 1 after intervention right leg arteries . Has not been transferred back to SNF yet. Objective Data Temperature: 98.0 F Pulse Rate: 72 Respiratory Rate: 16 Blood Pressure: 146/65 O2 Sat by Pulse Oximetry: 94 Objective Data: Warm right foot. Biphasic right PT artery Assessment Assessment: S/P arterial intervention right leg. Doing well Plan Plan: Will plan discharge to SNF on Thursday.
[2022-06-15] MEDS: ULTRAM PO PRN (00:09)
[2022-06-15] MEDS: ZOSYN VIAL 3.375 GRAMS 3.375 G in NS 100 ML IV 100 ML IV SCH ×3 (05:34→22:12)
[2022-06-15] MEDS: NovoLIN R (or HumuLIN R) SC PRN ×5 (05:42→22:12)
[2022-06-15] MEDS: LR 1,000 ML IV 1,000 ML IV SCH ×2 (05:44→17:11)
[2022-06-15] MEDS ORDERED: ZESTRIL TAB 20 MG ONE ×2 (08:49→20:54)
[2022-06-15] MEDS: ASPIRIN EC 81 MG PO SCH (09:39)
[2022-06-15] MEDS: VITAMIN C PO SCH (09:39)
[2022-06-15] MEDS: PROTONIX TAB 40 MG PO SCH (09:39)
[2022-06-15] MEDS: XARELTO PO SCH ×2 (09:41→21:06)
[2022-06-15] MEDS: NEURONTIN CAP 300 MG PO SCH ×2 (09:41→21:05)
[2022-06-15] MEDS: ZINC SULFATE PO SCH (09:42)
[2022-06-15] MEDS: NORVASC TAB 10 MG PO SCH (09:42)
[2022-06-15] MEDS: LIPITOR TAB 40 MG PO SCH (09:42)
[2022-06-15] MEDS: TAB-A-VITE PO SCH (09:43)
[2022-06-15] MEDS: ZESTRIL TAB 20 MG PO SCH ×2 (09:44→21:06)
[2022-06-15] MEDS: VITAMIN B-12 PO SCH (09:49)
[2022-06-15] MEDS ORDERED: XANAX PO PRN (14:08)
[2022-06-15] MEDS ORDERED: ZOFRAN INJ 4 MG VIAL IVP PRN (14:14)
[2022-06-15] MEDS ORDERED: NS 100 ML IV 100 ML ONE ×2 (14:55→15:00)
[2022-06-15] MEDS ORDERED: ZOSYN VIAL 3.375 GRAMS IV ONE (15:00)
--- NOTE | 2022-06-15 17:38 | NOTE.SOAP ---
Soap Note Note for Day of Date of Exam: 06/15/22 Subjective Data Subjective Data: POD # 3 , warm right foot Objective Data Temperature: 98.6 F Pulse Rate: 71 Respiratory Rate: 13 Blood Pressure: 166/72 O2 Sat by Pulse Oximetry: 95 Objective Data: Warm right foot.Left groin needle stick with bleeding . Assessment Assessment: S/P intervention right leg, improved blood flow. Will monitor right heel wound.
[2022-06-15] MEDS: NS 1,000 ML IV 1,000 ML IV SCH (17:46)
[2022-06-15] MEDS: NORCO 5/325 MG TAB PO PRN (21:05)
[2022-06-15] MEDS: COLACE CAP 100 MG PO SCH (21:06)
[2022-06-16 05:10] LABS: BLOOD UREA NITROGEN 10 mg/dL (7-18); CALCIUM 8.4 mg/dL (8.5-10.1); CARBON DIOXIDE 30.9 mmol/L (21-32); CHLORIDE 99 mmol/L (98-107); COR NA(FOR HYPERGLY) 137 mmol/L (136-145); CREATININE 0.99 mg/dL (0.70-1.30); GLUCOSE 252 mg/dL (65-99); POTASSIUM 3.6 mmol/L (3.5-5.1); SODIUM 133 mmol/L (136-145); eGFR NON BLACK RACES > 60 (>60)
[2022-06-16] MEDS: ZOSYN VIAL 3.375 GRAMS 3.375 G in NS 100 ML IV 100 ML IV SCH ×3 (05:20→21:33)
[2022-06-16] MEDS: NovoLIN R (or HumuLIN R) SC PRN ×4 (05:50→20:21)
[2022-06-16] MEDS ORDERED: ZESTRIL TAB 20 MG ONE ×2 (10:30→20:03)
[2022-06-16] MEDS: NEURONTIN CAP 300 MG PO SCH ×2 (10:34→20:20)
[2022-06-16] MEDS: XARELTO PO SCH ×2 (10:34→20:20)
[2022-06-16] MEDS: LIPITOR TAB 40 MG PO SCH (10:34)
[2022-06-16] MEDS: VITAMIN B-12 PO SCH (10:34)
[2022-06-16] MEDS: ZESTRIL TAB 20 MG PO SCH ×2 (10:34→20:20)
[2022-06-16] MEDS: NORVASC TAB 10 MG PO SCH (10:34)
[2022-06-16] MEDS: TAB-A-VITE PO SCH (10:34)
[2022-06-16] MEDS: ZINC SULFATE PO SCH (10:34)
[2022-06-16] MEDS: ASPIRIN EC 81 MG PO SCH (10:35)
[2022-06-16] MEDS: VITAMIN C PO SCH (10:35)
[2022-06-16] MEDS: PROTONIX TAB 40 MG PO SCH (10:35)
[2022-06-16] MEDS: NS 1,000 ML IV 1,000 ML IV SCH (15:16)
[2022-06-16] MEDS: NORCO 5/325 MG TAB PO PRN (17:20)
[2022-06-16] MEDS: MILK OF MAGNESIA PO SCH (20:18)
[2022-06-16] MEDS: COLACE CAP 100 MG PO SCH (20:20)
--- NOTE | 2022-06-16 23:37 | NOTE.SOAP ---
Soap Note Note for Day of Date of Exam: 06/16/22 Subjective Data Subjective Data: POD # 3 after atherectomy and drug coated balloon angioplasty of the right SFA, popliteal and tibial-pereoneal trunk arteries and angioplasty right posterior tibial artery .Doing well. Objective Data Temperature: 97.9 F Pulse Rate: 69 Respiratory Rate: 17 Blood Pressure: 149/65 O2 Sat by Pulse Oximetry: 95 Objective Data: Warm right foot with biphasic posterior tibial artery. Right heel wound clean. Assessment Assessment: S/p revascularization right foot. Doing well. Plan Plan: Await SNF placement.
[2022-06-17] MEDS: ZOSYN VIAL 3.375 GRAMS 3.375 G in NS 100 ML IV 100 ML IV SCH (05:06)
[2022-06-17] MEDS: NovoLIN R (or HumuLIN R) SC PRN (05:34)
[2022-06-17] MEDS ORDERED: ZESTRIL TAB 20 MG ONE (08:00)
[2022-06-17] MEDS: TAB-A-VITE PO SCH (08:33)
[2022-06-17] MEDS: ZINC SULFATE PO SCH (08:33)
[2022-06-17] MEDS: MILK OF MAGNESIA PO SCH (08:33)
[2022-06-17] MEDS: NEURONTIN CAP 300 MG PO SCH (08:33)
[2022-06-17] MEDS: VITAMIN B-12 PO SCH (08:34)
[2022-06-17] MEDS: ZESTRIL TAB 20 MG PO SCH (08:34)
[2022-06-17] MEDS: LIPITOR TAB 40 MG PO SCH (08:34)
[2022-06-17] MEDS: NORVASC TAB 10 MG PO SCH (08:34)
[2022-06-17] MEDS: XARELTO PO SCH (08:34)
[2022-06-17] MEDS: VITAMIN C PO SCH (08:34)
[2022-06-17] MEDS: PROTONIX TAB 40 MG PO SCH (08:34)
[2022-06-17] MEDS: ASPIRIN EC 81 MG PO SCH (08:34)
[2022-06-17 08:49] VITALS: BP 112/56
[2022-06-17 09:16] VITALS: BMI 33.3
--- NOTE | 2022-06-18 13:16 | DR.OPNOTE ---
OP NOTE Pre-Op Diagnosis: Critical limb ischemia right leg, non healing wound right heel. Post-Op Diagnosis: same Procedure Date Date Of Procedure: 06/13/22 Procedure: PROCEDURE : DIAGNOSTIC AORTOGRAM, DIAGNOSTIC ARTERIOGRAM RIGHT LEG, ATHERECTOMY AND DRUG COATED BALLOON ANGIOPLASTY RIGHT DISTAL SUPERFICIAL FEMORAL ARTERY, RIGHT POPLITEAL ARTERY, RIGHT TIBIAL-PERONEAL TRUNK AND ANGIOPLAST RIGHT POSTERIOR TIBIAL ARTERY NARRATIVE : Patient was taken to the operative suite and placed in the supine position. The left groin and right leg were prepped and draped in sterile fashion. The patient was given intravenous sedation which was supervised by myself. Time out for the procedure obtained . Ultrasound used to identify the left common femoral artery and the skin overlying it infiltrated with 0.5% Marcaine . Ultrasound used to guide puncture of the left femoral artery and a 0.012 inch guide wire placed. Incision made over the guide wire at the skin edge with a number 11 knife blade . Micro sheath placed over this small guide wire into the left femoral artery. Small guide wire exchanged for a 0.035 inch Advantage glide wire and the micro sheath exchanged for a 5 Fr vascular sheath . The patient was given 5000 units of IV heparin. Omni catheter placed over the glide wire and diagnostic aortogram performed showing normal aorta and iliac arteries . Omni catheter used to steer the guide wire down to the distal right external iliac artery. The Omni catheter exchanged for a Stockwell catheter. Sequential arteriograms carried out of the right leg showing severe disease of the distal right superficial femoral artery, near complete total occlusion of the right popliteal artery, severe disease of the right tibial peroneal trunk and severe disease of the proximal right posterior tibial artery . The posterior tibial artery is the only run off to the right foot. [place] wire and Stockwell catheter used to go all the way down to the posterior tibial artery as selective catherization . Stockwell catheter placed all the way to the distal right posterior tibial artery . Left groin 5 Fr sheath exchanged for a 7 Fr destination sheath and Stockwell catheter used to deliver the 0.014 [address] wire [address] the way down the right posterior tibial artery . The Jet Stream device was loaded on and atherectomy carried out of the right superficial femoral artery, right Popliteal artery and , right tibial peroneal trunk . Two runs were made of each section of the involved artery with the blades down,. The Jet Stream device removed . The tibial peroneal trunk dilated with a 4 mmx 100 mm drug coated [place] balloon, inflated for 3 minutes. The right popliteal and right superficial femoral arteries were balloon dilated for 3 minutes with a 5 mmx 200 mm [place] drug coated balloon. Finally the right posterior tibial artery balloon dilated with a 3mmx 220 mm [place] angioplasty balloon. Repeat arteriogram showed excellent results . Patient had been give addition 3000 units of heparin at one hour . At the end of the case the heparin was reversed with 30 mg of IV Protamine. All devices and wires removed. The 7 fr sheath pulled back into the aorta and a 0.035 inch guide wire placed. The destination sheath exchanged for an Angio seal device over the wire used to close the puncture of the left femoral artery. Dressing applied. Patient taken to same day surgery in good condition. Type of Anesthesia: Local (0.5% MARCAINE ) Anesthesia Comment: PLUS MAC Findings: Severe disease right distal superficial femoral artery, near total occlusion right popliteal artery, severe disease right tibial peroneal trunk, severe disease right posterior tibial artery Type of Fluids Used:: Lactated Ringers Total Amount of Fluid Infused:: 400 cc EBL: 200 cc Complications:: none Needle/Sponge Count:: correct Disposition/Condition: Pt. tolerated procedure without difficulty. patient taken to ICU in stable condition.
== END 2022-06-17 11:40 | DRG 270 ==
LOC: ICU 17:01
PROVIDERS: ADMIT Surgery; ATTEND Surgery
DX: I70.221 Atherosclerosis of native arteries of extremities with rest pain, right leg; E78.49 Other hyperlipidemia; Z20.822 Contact with and (suspected) exposure to COVID-19; R26.89 Other abnormalities of gait and mobility; I25.10 Atherosclerotic heart disease of native coronary artery without angina pectoris; E11.65 Type 2 diabetes mellitus with hyperglycemia; K21.9 Gastro-esophageal reflux disease without esophagitis; I10 Essential (primary) hypertension; L89.613 Pressure ulcer of right heel, stage 3

== ENCOUNTER 2022-07-21 08:54 | Inpatient (IN) ==
[2022-07-21] MEDS ORDERED: NS 1,000 ML IV 1,000 ML ONE (10:27)
[2022-07-21 10:40] LABS: BASOPHILS # (AUTO) 0.1 X10^3/uL (0.0-0.1); BASOPHILS % (AUTO) 0.8 % (0.2-1.0); EOSINOPHILS # (AUTO) 0.5 x10^3/uL (0.0-0.2); EOSINOPHILS % (AUTO) 3.7 % (0.9-2.9); HEMATOCRIT 32.2 % (42.0-54.0); HEMOGLOBIN 10.9 g/dL (13.5-18.0); LYMPHOCYTES # (AUTO) 2.7 X10^3/uL (1.3-2.9); MEAN CORPUSCULAR HEMOGLOBIN 31.6 pg (27.0-34.0); MEAN CORPUSCULAR HGB CONC 33.9 g/dL (33.0-35.0); MEAN CORPUSCULAR VOLUME 93.3 fL (80.0-100.0); MEAN PLATELET VOLUME 8.2 fL (7.4-11.0); MONOCYTES # (AUTO) 0.9 x10^3/uL (0.3-0.8); NEUTROPHILS # (AUTO) 8.5 x10^3/uL (2.2-4.8); NEUTROPHILS % (AUTO) 67.5 % (42.0-75.0); PLATELET COUNT 308 X10^3/uL (150.0-450.0); RED BLOOD COUNT 3.46 X10^6/uL (4.7-6.0); RED CELL DISTRIBUTION WIDTH 13.7 % (11.6-16.5); WHITE BLOOD COUNT 12.6 X10^3/uL (3.6-10.0)
[2022-07-21 11:02] LABS: ALBUMIN 3.3 g/dL (3.4-5.0); CALCIUM 8.9 mg/dL (8.5-10.1); COR CA(FOR HYPOALB) 9.5 mg/dL (8.5-10.1); CREATININE 1.52 mg/dL (0.70-1.30); TOTAL PROTEIN 7.5 g/dL (6.4-8.2)
[2022-07-21] MEDS ORDERED: FENTANYL VIAL INJ 100 mcg ONE (11:05)
[2022-07-21] MEDS ORDERED: VERSED ONE (11:05)
[2022-07-21 11:08] LABS: POTASSIUM 6.3 mmol/L (3.5-5.1)
[2022-07-21] MEDS ORDERED: D50W ABBOJECT SYR ONE (11:39)
[2022-07-21] MEDS ORDERED: NovoLIN R (or HumuLIN R) ONE (11:41)
[2022-07-21] MEDS ORDERED: D50W ABBOJECT SYR IV ONE (11:42)
[2022-07-21] MEDS ORDERED: NovoLIN R (or HumuLIN R) SUBCUT ONE (11:44)
[2022-07-21] MEDS ORDERED: NovoLIN R (or HumuLIN R) IV ONE (11:44)
[2022-07-21] MEDS ORDERED: NS 1,000 ML IV 1,000 ML IV ONE (11:57)
[2022-07-21] MEDS: LR 1,000 ML IV 1,000 ML IV SCH ×2 (12:28→21:11)
[2022-07-21 12:45] VITALS: BMI 30.9
[2022-07-21 14:23] LABS: BLOOD UREA NITROGEN 32 mg/dL (7-18); CALCIUM 8.4 mg/dL (8.5-10.1); CARBON DIOXIDE 25.9 mmol/L (21-32); CHLORIDE 103 mmol/L (98-107); CREATININE 1.33 mg/dL (0.70-1.30); GLUCOSE 66 mg/dL (65-99); POTASSIUM 4.8 mmol/L (3.5-5.1); SODIUM 138 mmol/L (136-145); eGFR NON BLACK RACES 55 (>60)
[2022-07-22] MEDS: LR 1,000 ML IV 1,000 ML IV SCH ×4 (05:43→21:58)
--- NOTE | 2022-07-22 10:06 | NOTE.SOAP ---
Soap Note Note for Day of Date of Exam: 07/21/22 Subjective Data Subjective Data: Patient to have left leg arterial intervention for critical left leg ischemia yesterday but had a K+ of 6.3. Had hydration , glucose and insulin and f/u K+ was 4.8. , but the other cases took long and I could not get him done . Unfortunately the OR scheduled is packed and we have OR personel out. Will schedule for 07/24/2022. Has healing wound right leg after arterial intervent [facility] recently. Objective Data Objective Data: see H&P. Assessment Assessment: Critical left leg ischemia , right leg wound after intervention. Plan Plan: Will treat right foot wound with Santyl. Intervention left leg arteries 07/24/2022.
[2022-07-22] MEDS: SNACK - Diabetic Appropriate PO SCH (21:59)
--- NOTE | 2022-07-22 23:05 | NOTE.SOAP ---
Soap Note Note for Day of Date of Exam: 07/22/22 Subjective Data Subjective Data: Patient with critical ischemia of the left leg , s/p revascularization of right leg also with critical ischemia a few weeks ago t0 help with healing of right leg . Surgery delayed due to potassium of 6.3 , treated with Normal saline and insulin/ glucose and it came down to 4.8 but there was no time left on the schedule . Patient is resident of assisted facility. Wound being treated with Santyl and will monitor potassium level and will reschedule peripheral arterial intervention for 07/24/2022. Objective Data Temperature: 98.8 F Pulse Rate: 90 Respiratory Rate: 18 Blood Pressure: 138/60 O2 Sat by Pulse Oximetry: 96 Objective Data: Patietn resting comfortably Assessment Assessment: Critical ischemia left leg, poorly healing wound right foot Plan Plan: Santyl to right foot wound , monitor potassium level, arterial intervention left leg 07/24/2022.
[2022-07-23] MEDS: LR 1,000 ML IV 1,000 ML IV SCH ×3 (05:20→21:30)
[2022-07-23 06:08] LABS: BLOOD UREA NITROGEN 11 mg/dL (7-18); CALCIUM 8.9 mg/dL (8.5-10.1); CHLORIDE 101 mmol/L (98-107); COR NA(FOR HYPERGLY) 136 mmol/L (136-145); CREATININE 0.98 mg/dL (0.70-1.30); GLUCOSE 162 mg/dL (65-99); POTASSIUM 4.4 mmol/L (3.5-5.1); SODIUM 135 mmol/L (136-145); eGFR NON BLACK RACES > 60 (>60)
[2022-07-23] MEDS: SANTYL EXT SCH (09:00)
[2022-07-23] MEDS ORDERED: VOLTAREN 1 % GEL MULTI DOSE TUBE TOP PRN (12:16)
[2022-07-23] MEDS ORDERED: CHRONULAC PO PRN (12:19)
[2022-07-23] MEDS ORDERED: ZOFRAN TAB 4 MG PO PRN (12:22)
[2022-07-23] MEDS ORDERED: ULTRAM PO PRN (12:23)
[2022-07-23] MEDS ORDERED: NORCO 5/325 MG TAB PO PRN (12:26)
[2022-07-23] MEDS: LOVENOX INJ 40 MG SYR SC SCH (13:44)
[2022-07-23] MEDS: LIPITOR TAB 20 MG PO SCH (13:45)
[2022-07-23] MEDS: ZINC SULFATE PO SCH (13:45)
[2022-07-23] MEDS: NEURONTIN CAP 300 MG PO SCH ×2 (13:45→21:30)
[2022-07-23] MEDS: TAB-A-VITE PO SCH (13:46)
[2022-07-23] MEDS: PROTONIX TAB 40 MG PO SCH (13:46)
[2022-07-23] MEDS: NORVASC TAB 10 MG PO SCH (13:46)
[2022-07-23] MEDS: VITAMIN C PO SCH (13:46)
[2022-07-23] MEDS: DIABETA PO SCH (17:46)
[2022-07-23] MEDS: SNACK - Diabetic Appropriate PO SCH (19:30)
[2022-07-23] MEDS ORDERED: ZESTRIL TAB 20 MG ONE (20:52)
[2022-07-23] MEDS ORDERED: MIRALAX POWDER (1 DOSE 17 G) PO SCH (21:00)
[2022-07-23] MEDS: ZESTRIL TAB 20 MG PO SCH (21:30)
--- NOTE | 2022-07-23 21:57 | NOTE.SOAP ---
Soap Note Note for Day of Date of Exam: 07/23/22 Subjective Data Subjective Data: Patient with critical ischemia left leg and probable left politest artery occlusion and diffuse disease of the left trifurcation arteries. Wound right foot. S/P re-vascularization right foot to help wound heal. Objective Data Temperature: 98.1 F Pulse Rate: 80 Respiratory Rate: 18 Blood Pressure: 145/67 O2 Sat by Pulse Oximetry: 96 Objective Data: Cool left leg Assessment Assessment: as above Plan Plan: Plan arterial intervention left leg in AM and possibly debride right foot wound .
[2022-07-24] MEDS: LR 1,000 ML IV 1,000 ML IV SCH ×2 (04:15→14:15)
[2022-07-24] MEDS ORDERED: ANCEF VIAL 1 GRAM ONE (08:21)
[2022-07-24] MEDS ORDERED: NS 1,000 ML IV 1,000 ML ONE (08:21)
[2022-07-24] MEDS ORDERED: NS 100 ML IV 100 ML ONE (08:24)
[2022-07-24] MEDS ORDERED: PEPCID 20 MG VIAL ONE (08:42)
[2022-07-24] MEDS ORDERED: ZOFRAN INJ 4 MG VIAL ONE (08:42)
[2022-07-24] MEDS ORDERED: ROBINUL ONE (08:42)
[2022-07-24] MEDS ORDERED: HEPARIN SODIUM INJ 5000 UNITS ONE (08:43)
[2022-07-24] MEDS ORDERED: DIPRIVAN VIAL 20 ML ONE ×2 (08:43→10:42)
[2022-07-24] MEDS ORDERED: OFIRMEV IV 1000 MG VIAL 1,000 MG/100 ML VIAL IV ONE (08:43)
[2022-07-24] MEDS ORDERED: FENTANYL VIAL INJ 100 mcg ONE (08:43)
[2022-07-24] MEDS ORDERED: VERSED ONE (08:43)
[2022-07-24] MEDS ORDERED: VITAMIN B-12 INJ IM SCH (09:00)
[2022-07-24] MEDS ORDERED: HEPARIN SODIUM IN D5W 75,000 UNITS/1,500 ML BAG ONE (09:15)
[2022-07-24] MEDS ORDERED: MARCAINE 0.5% ONE (09:15)
[2022-07-24] MEDS: TAB-A-VITE PO SCH (09:41)
[2022-07-24] MEDS ORDERED: XYLOCAINE 2 % (PLAIN) ONE (09:41)
[2022-07-24] MEDS: DIABETA PO SCH (09:41)
[2022-07-24] MEDS: VITAMIN C PO SCH (09:41)
[2022-07-24] MEDS ORDERED: KETAMINE HCL ONE (09:41)
[2022-07-24] MEDS: ZINC SULFATE PO SCH (09:41)
[2022-07-24] MEDS ORDERED: PRECEDEX INJ VIAL IVP ONE (09:41)
[2022-07-24] MEDS: LOVENOX INJ 40 MG SYR SC SCH (09:42)
[2022-07-24] MEDS: LIPITOR TAB 20 MG PO SCH (09:42)
[2022-07-24] MEDS ORDERED: BENADRYL INJ 50 MG VIAL ONE (09:52)
[2022-07-24] MEDS ORDERED: DECADRON INJ ONE (09:52)
[2022-07-24] MEDS ORDERED: BETADINE SOLN ONE (10:00)
[2022-07-24] MEDS ORDERED: EPHEDRINE SULFATE INJ ONE (10:10)
[2022-07-24] MEDS ORDERED: NS 500 ML IV 500 ML IV ONE (10:30)
[2022-07-24] MEDS ORDERED: PROTAMINE SULFATE 50 MG VIAL ONE (10:51)
[2022-07-24] MEDS: NEURONTIN CAP 300 MG PO SCH (11:20)
[2022-07-24] MEDS: SANTYL EXT SCH (11:21)
--- NOTE | 2022-07-24 11:23 | OR.IMMED ---
IMMEDIATE POST-OP NOTE Immediate Post-Op Note Pre-Op Diagnosis: critical ischemia left leg, wound right heel and end of right great toe. 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 Estimated Blood Loss: < 100 cc Complications: none Discharge Progress Notes: Discharge to [facility] later today.
[2022-07-24] MEDS ORDERED: ZESTRIL TAB 20 MG ONE (11:26)
[2022-07-24] MEDS: NORVASC TAB 10 MG PO SCH (12:19)
[2022-07-24] MEDS: ZESTRIL TAB 20 MG PO SCH (12:20)
[2022-07-24] MEDS: PROTONIX TAB 40 MG PO SCH (12:20)
--- NOTE | 2022-07-24 12:21 | W.DIS.FURT ---
Summary of Discharge Discharge Summary of Date Date of Exam: 07/24/22 Admission Date Date of Admission: 07/21/22 Admission Diagnosis Hospital Course: This is a 82 year old male currently a resident at [facility] in [place] who had presented with non healing wounds to the right foot and significant rest pain of both lower extremities. Three weeks ago he had intervention of the right leg including atherectomy and drug-coated balloon angioplasty of the right distal superficial femoral artery ,popliteal arteries and tibial- peroneal trunk and angioplasty of the right posterior tibial artery. He returned on ThursdayJuly 20 for arterial intervention of the left leg to resolve a completely occluded left popliteal artery and poor run off. However his potassium was greater than 6 and was corrected however we had no additional time to take him to the OR that day.He was admitted and we continued to observe his potassium and place Santyl on the right foot wounds. He was taken back to the operating suite on July 24 where he underwent atherectomy and drug-coated balloon angioplasty of the left popliteal artery and atherectomy and balloon angiopasty of the left tibial peroneal trunk . He will be transferred back to [facility] today on his usual medications which include aspirin and Plavix. I will see him in follow-up in one to two weeks. He is given a prescription for Percocet 5 mg tablets, one every six hours pure in pain . Vital Signs: Vital Signs (72 hours) 07/22/22 23:04 07/23/22 21:57 07/21/22 12:25 Temperature 98.8 F 98.1 F 97.1 F L Pulse Rate 90 80 Pulse Rate [Brachial] Pulse Rate [Right Radial] 79 Respiratory Rate 18 18 18 Blood Pressure 138/60 145/67 Blood Pressure [Left Arm] Blood Pressure [Right Arm] 107/69 O2 Sat by Pulse Oximetry 96 96 95 Oxygen Delivery Method Room Air 07/21/22 16:00 07/21/22 20:00 07/21/22 19:00 Temperature 97.6 F 98.0 F Pulse Rate Pulse Rate [Brachial] Pulse Rate [Right Radial] 80 81 Respiratory Rate 20 19 Blood Pressure Blood Pressure [Left Arm] Blood Pressure [Right Arm] 103/46 131/59 O2 Sat by Pulse Oximetry 93 L 100 Oxygen Delivery Method Room Air Room Air 07/22/22 00:00 07/22/22 04:00 07/22/22 07:00 Temperature 97.5 F L 98.3 F Pulse Rate Pulse Rate [Brachial] Pulse Rate [Right Radial] 91 H 86 Respiratory Rate 19 19 Blood Pressure Blood Pressure [Left Arm] Blood Pressure [Right Arm] 123/55 141/67 O2 Sat by Pulse Oximetry 96 96 Oxygen Delivery Method Room Air 07/22/22 08:00 07/22/22 12:00 07/22/22 16:00 Temperature 99.6 F 98.6 F 98.8 F Pulse Rate Pulse Rate [Brachial] Pulse Rate [Right Radial] 89 88 90 Respiratory Rate 20 20 18 Blood Pressure Blood Pressure [Left Arm] 153/69 154/69 138/60 Blood Pressure [Right Arm] O2 Sat by Pulse Oximetry 97 96 96 Oxygen Delivery Method Room Air Room Air Room Air 07/22/22 08:00 07/22/22 19:00 07/22/22 20:00 Temperature 98.5 F Pulse Rate Pulse Rate [Brachial] Pulse Rate [Right Radial] 89 Respiratory Rate 20 Blood Pressure Blood Pressure [Left Arm] 139/62 Blood Pressure [Right Arm] O2 Sat by Pulse Oximetry 95 Oxygen Delivery Method Room Air Room Air 07/23/22 00:00 07/23/22 04:00 07/23/22 07:00 Temperature 98.5 F 97.9 F Pulse Rate Pulse Rate [Brachial] Pulse Rate [Right Radial] 86 85 Respiratory Rate 20 20 Blood Pressure Blood Pressure [Left Arm] 149/69 150/60 Blood Pressure [Right Arm] O2 Sat by Pulse Oximetry 94 L 94 L Oxygen Delivery Method Room Air 07/23/22 08:00 07/23/22 08:00 07/23/22 12:00 Temperature 97.8 F 97.8 F 97.8 F Pulse Rate Pulse Rate [Brachial] Pulse Rate [Right Radial] 88 88 80 Respiratory Rate 20 20 20 Blood Pressure Blood Pressure [Left Arm] 172/76 172/76 162/71 Blood Pressure [Right Arm] O2 Sat by Pulse Oximetry 97 97 96 Oxygen Delivery Method 07/23/22 16:00 07/23/22 19:00 07/23/22 20:00 Temperature 99.7 F H 98.1 F Pulse Rate Pulse Rate [Brachial] 80 Pulse Rate [Right Radial] 83 Respiratory Rate 20 18 Blood Pressure Blood Pressure [Left Arm] 174/79 145/67 Blood Pressure [Right Arm] O2 Sat by Pulse Oximetry 95 96 Oxygen Delivery Method Room Air Room Air 07/24/22 00:00 07/24/22 04:00 07/24/22 08:00 Temperature 98.6 F 97.8 F 98.3 F Pulse Rate Pulse Rate [Brachial] 78 76 76 Pulse Rate [Right Radial] Respiratory Rate 18 18 18 Blood Pressure Blood Pressure [Left Arm] 134/64 149/67 129/60 Blood Pressure [Right Arm] O2 Sat by Pulse Oximetry 98 97 96 Oxygen Delivery Method Room Air Room Air Room Air 07/24/22 07:00 07/24/22 08:24 Temperature Pulse Rate 78 Pulse Rate [Brachial] Pulse Rate [Right Radial] Respiratory Rate 18 Blood Pressure 157/71 Blood Pressure [Left Arm] Blood Pressure [Right Arm] O2 Sat by Pulse Oximetry 92 L Oxygen Delivery Method Room Air Room Air Labs: Laboratory Last Values WBC 12.6 X10^3/uL (3.6-10.0) H 07/21/22 10:30 RBC 3.46 X10^6/uL (4.7-6.0) L 07/21/22 10:30 Hgb 10.9 g/dL (13.5-18.0) L 07/21/22 10:30 Hct 32.2 % (42.0-54.0) L 07/21/22 10:30 MCV 93.3 fL (80.0-100.0) 07/21/22 10:30 MCH 31.6 pg (27.0-34.0) 07/21/22 10:30 MCHC 33.9 g/dL (33.0-35.0) 07/21/22 10:30 RDW 13.7 % (11.6-16.5) 07/21/22 10:30 Plt Count 308 X10^3/uL (150.0-450.0) 07/21/22 10:30 MPV 8.2 fL (7.4-11.0) 07/21/22 10:30 Neut % (Auto) 67.5 % (42.0-75.0) 07/21/22 10:30 Lymph % (Auto) 21.0 % (21.0-51.0) 07/21/22 10:30 [place] % (Auto) 7.0 % (0.0-13.0) 07/21/22 10:30 Eos % (Auto) 3.7 % (0.9-2.9) H 07/21/22 10:30 Baso % (Auto) 0.8 % (0.2-1.0) 07/21/22 10:30 Neut # (Auto) 8.5 x10^3/uL (2.2-4.8) H 07/21/22 10:30 Lymph # (Auto) 2.7 X10^3/uL (1.3-2.9) 07/21/22 10:30 [place] # (Auto) 0.9 x10^3/uL (0.3-0.8) H 07/21/22 10:30 Eos # (Auto) 0.5 x10^3/uL (0.0-0.2) H 07/21/22 10:30 Baso # (Auto) 0.1 X10^3/uL (0.0-0.1) 07/21/22 10:30 Absolute Nucleated RBC 0.1 /100WBC 07/21/22 10:30 Sodium 135 mmol/L (136-145) L 07/23/22 05:42 Corrected Sodium 136 mmol/L (136-145) 07/23/22 05:42 Potassium 4.4 mmol/L (3.5-5.1) 07/23/22 05:42 Chloride 101 mmol/L (98-107) 07/23/22 05:42 Carbon Dioxide 26.0 mmol/L (21-32) 07/23/22 05:42 BUN 11 mg/dL (7-18) 07/23/22 05:42 Creatinine 0.98 mg/dL (0.70-1.30) 07/23/22 05:42 Est GFR (MDRD) Af Amer > 60 (>60) 07/23/22 05:42 Est GFR (MDRD) Non-Af > 60 (>60) 07/23/22 05:42 Glucose 162 mg/dL (65-99) H 07/23/22 05:42 POC Glucose (mg/dL) 214 mg/dL (65-99) H 07/24/22 11:21 Calcium 8.9 mg/dL (8.5-10.1) 07/23/22 05:42 Corrected Calcium 9.5 mg/dL (8.5-10.1) 07/21/22 10:30 Total Bilirubin 0.20 mg/dL (0.2-1.0) 07/21/22 10:30 AST 27 Units/L (15-37) 07/21/22 10:30 ALT 26 Units/L (12-78) 07/21/22 10:30 Alkaline Phosphatase 148 Units/L (46-116) H 07/21/22 10:30 Total Protein 7.5 g/dL (6.4-8.2) 07/21/22 10:30 Albumin 3.3 g/dL (3.4-5.0) L 07/21/22 10:30 Globulin 4.2 g/dL (2.5-4.5) 07/21/22 10:30 Albumin/Globulin Ratio 0.8 Ratio (1.1-2.1) L 07/21/22 10:30 Reason For Visit: CRITICAL ISCHEMIA PF LEFT LEG, WOUND TO RIGHT LEG Discharge Date Discharge Date: 07/24/22 Discharge Diagnosis All Active Problems (Updated 07/24/22 @ 12:09 by Jared Montana) Atherosclerosis of [place] arteries of extremities with rest pain, left leg (Acute) Critical limb ischemia of right lower extremity (Acute) Plan of Treatment: Continue with present treatment and follow up plan. Pt is to keep follow up appointment as instructed and take medications as ordered. Discharge Medications Discharge Medications: oxycodone Adverse Reaction (Mild, Verified 07/21/22 11:38) CONTINUE taking the following medications ascorbic acid (vitamin C) 500 mg tablet (Vitamin C) 500 mg PO QDAY 07/21/22 [History] insulin aspart U-100 100 unit/mL subcutaneous solution (Novolog U-100 Insulin aspart) 1 sliding scale dose subcut USEASDIRECTD 07/21/22 [History] multivitamin,tx-minerals 1 tab PO QDAY 07/21/22 [History] polyethylene glycol 3350 17 gram oral powder packet 17 g PO HS 07/21/22 [History] zinc 50 mg capsule 50 mg PO QDAY 07/21/22 [History] diclofenac sodium 1 % topical gel 1 ea topical Q12H PRN 07/23/22 [History] lactulose 20 gram/30 mL oral solution 30 ml PO Q24H PRN Constipation 07/23/22 [History] ondansetron HCl 4 mg tablet 4 mg PO Q6H PRN 07/23/22 [History] Discharge Disposition Assessment: see hospital course Discharge Disposition: to SNF Discharge Condition: stable Discharge Plan Discharge Plan Hospital Course: This is a 82 year old male currently a resident at [facility] in [place] who had presented with non healing wounds to the right foot and significant rest pain of both lower extremities. Three weeks ago he had intervention of the right leg including atherectomy and drug-coated balloon angioplasty of the right distal superficial femoral artery ,popliteal arteries and tibial- peroneal trunk and angioplasty of the right posterior tibial artery. He returned on ThursdayJuly 20 for arterial intervention of the left leg to resolve a completely occluded left popliteal artery and poor run off. However his potassium was greater than 6 and was corrected however we had no additional time to take him to the OR that day.He was admitted and we continued to observe his potassium and place Santyl on the right foot wounds. He was taken back to the operating suite on July 24 where he underwent atherectomy and drug-coated balloon angioplasty of the left popliteal artery and atherectomy and balloon angiopasty of the left tibial peroneal trunk . He will be transferred back to [facility] today on his usual medications which include aspirin and Plavix. I will see him in follow-up in one to two weeks. He is given a prescription for Percocet 5 mg tablets, one every six hours pure in pain . Patient Disposition: SNF Condition: Stable Health Concerns: Post Hospitalization: new medications and changes needed to prevent readmission or further decline. Pt educated and given instructions on all concerns. Care Plan Goals: Problem: Pain/Alteration in Comfort Goal: Improve/ Resolve Pain; Achieve Pain Tolerance Instructions: Take pain medications as prescribed. Contact your primary care provider if your pain is unrelieved or worsens. Follow up with primary care provider as directed. Plan of Treatment: Continue with present treatment and follow up plan. Pt is to keep follow up appointment as instructed and take medications as ordered. Assessment: see hospital course Prescriptions: No Action polyethylene glycol 3350 17 gram Powder In Packet 17 g PO HS ascorbic acid (vitamin C) [Vitamin C] 500 mg Tablet 500 mg PO QDAY insulin aspart U-100 [Novolog U-100 Insulin aspart] 100 unit/mL Solution 1 sliding scale dose SUBCUT USEASDIRECTD multivitamin,tx-minerals Tablet 1 tab PO QDAY zinc 50 mg Capsule 50 mg PO QDAY diclofenac sodium [Voltaren] 1 % Gel 1 ea TOPICAL Q12H PRN lactulose 20 gram/30 mL Solution 30 ml PO Q24H PRN (Reason: Constipation) ondansetron HCl [Zofran] 4 mg Tablet 4 mg PO Q6H PRN atorvastatin 20 mg tablet 20 mg PO QDAY glyburide 5 mg tablet 10 mg PO BID lisinopril 20 mg tablet 20 mg PO BID amlodipine 10 mg tablet 10 mg PO QDAY pantoprazole 40 mg tablet,delayed release (DR/EC) 40 mg PO QDAY cyanocobalamin (vitamin B-12) 1,000 mcg/mL solution 1 ml IM MONTHLY Rx Instructions: Injection given on the of every month gabapentin 300 mg capsule 300 mg PO BID insulin degludec [Tresiba FlexTouch U-200] 200 unit/mL (3 mL) insulin pen 60 unit SUBCUT HS Label Comments: [NO ORIGINAL SIG] hydrocodone-acetaminophen 5-325 mg tablet 1 tab PO Q4HR PRN tramadol 50 mg tablet 1 tab PO Q8H PRN Xarelto 2.5 mg tablet 2.5 mg PO BID Qty: 180 4RF Orders to Discharge Patient Discharge Orders: Discharge (Routine); Ordered 07/24/22 Ordered By: Jared Montana Follow ups/Referrals Follow ups/Referrals: Jared Montana [Primary Care Provider] - 08/05/22 4:00 pm Instructions Instructions: Atherosclerosis Stand Alone Forms: Excuse From Work or School
[2022-07-24 16:36] VITALS: BP 128/68; PULSE 89; TEMP 97.6; O2SAT 93
--- NOTE | 2022-08-01 11:12 | DR.OPNOTE ---
OP NOTE Pre-Op Diagnosis: Critical ischemia left leg, wounds to right heel and right great toe Post-Op Diagnosis: same Procedure Date Date Of Procedure: 07/24/22 Procedure: PROCEDURE: Diagnostic aortogram , diagnostic arteriogram left leg, atherectomy and angioplasty left tibial peroneal trunk, atherectomy and drug coated balloon angioplasty left popliteal artery, excisional debridement of right heel wound and right great toe wound NARRATIVE :The patient was taken to the operative suite and placed in the supine position. He was given intravenous sedation supervised by myself. Time out for the procedure obtained. Ultrasound used to identify the right femoral artery and the skin overlying it infiltrated with 0.5% Marcaine . Ultrasound used to guide puncture of the right femoral artery and a 0.012 inch guide wire placed. Incision made over the guide wire at the skin edge with a number 11 knife blade and a micro sheath placed over the guide wire into the right femoral artery. The small guide wire exchanged for a 0.035 inch Advantage glidewire and the micro sheath exchanged for a 5 Fr vascular sheath. Patient was given 5000 units of intravenous heparin. Over the guide wire we placed an Omni catheter and performed diagnostic aortogram showing normal iliac arteries and normal aorta. Omni catheter used to steer the guidewire down the left iliac artery to the left external iliac artery. Omni catheter exchanged for a [place] catheter. [place] catheter and 0.035 inch guide wire used to perform sequential arteriograms of the entire left leg showing near total occlusion the left tibial peroneal trunk trunk and severe disease of the left distal popliteal artery . The 5 Fr sheath in the right femoral artery exchanged for a 7 Fr destination sheath which was parked in the mid left superficial femoral artery. [place] catheter and guidewire were used to go all the way down into the peroneal artery. This was the selective catheterization. The guide wire removed and exchanged for a 0.014 inch guidewire. The [place] catheter removed and over this we placed the Jet Stream device and performed atherectomy of both the tibial peroneal trunk and the popliteal artery. This is done with two passes of the Jet Stream device. Jet stream device removed and we placed a [place] 3mmx60 mm [employer] balloon and performed balloon angioplasty for 1 minute of the tibial peroneal trunk. This balloon removed and we placed a 5 mm by 150 mm [employer] [place] balloon and balloon dilatation for 3 minutes with this drug coated balloon of the popliteal artery . This removed and post-procedure arteriogram showed excellent results. All wires and devices were removed. The destination sheath pulled back into the aorta and a 0.035 inch wire placed . Destination sheath exchanged for an Angio seal device used to close the puncture of the right femoral artery. Patient was given 30 mg of intravenous Protamine. The right great toe and right heel had been prepped and draped. The right heel wound measured approximately 4 cm by 3 cm by 0.3 cm. The exudate and scar removed from this wound with an excisional debridement using a 15 knife blade. The great toe wound measured 1.5 cm by 0.5 cm and this eschar removed as an excisional debridement with a # 15 knife blade. Bleeding stopped with electrocautery. Both wounds were dressed with Neosporin and dry dressing. The patient was taken to the surgical floor in good condition after the procedure. Type of Anesthesia: Local (0.5% Marcaine) Anesthesia Comment: plus MAC Findings: severe stenotic disease of the left distal popliteal artery, near total occlusion left tibial peroneal trunk Type of Fluids Used:: Lactated Ringers Total Amount of Fluid Infused:: 800 cc Urine output: 600 cc EBL: < 100 cc Complications:: none Needle/Sponge Count:: correct Disposition/Condition: Pt. tolerated procedure without difficulty. Taken back to the floor in stable condition.
== END 2022-07-24 16:25 | DRG 271 ==
LOC: SURG1 08:54 → MED/SURG 11:55
PROVIDERS: ADMIT Surgery; ATTEND Surgery
DX: I10 Essential (primary) hypertension; R26.89 Other abnormalities of gait and mobility; L97.429 Non-pressure chronic ulcer of left heel and midfoot with unspecified severity; I70.222 Atherosclerosis of native arteries of extremities with rest pain, left leg; L97.529 Non-pressure chronic ulcer of other part of left foot with unspecified severity; E78.5 Hyperlipidemia, unspecified; E87.5 Hyperkalemia; E11.65 Type 2 diabetes mellitus with hyperglycemia; E11.621 Type 2 diabetes mellitus with foot ulcer